=== PATIENT | female | born 2000 | race Caucasian/White ===

== ENCOUNTER 2018-11-11 21:41 | Emergency (ER) | payer BC ==
[~2018-11-11] VITALS: Ht 170.2 cm; Wt 122.8 kg
[2018-11-11] MEDS ORDERED: PHENYLEPHRINE NASAL 1%, 15ML SPRAY ONE ×2 (22:17→22:22)
--- NOTE | 2018-11-11 22:26 | NUR ---
INITIAL CONTACT WITH PT. PT HAS BEEN SEEN BY AND NEOSYNEPHRIN ADMINISTERED. PT RESTING QUIETLY, NAD.
[2018-11-11] MEDS ORDERED: NAPR-856 PO (22:28)
[2018-11-11] MEDS ORDERED: PHENYLEPHRINE NASAL 1%, 30ML DROPS NAS ONE (22:30)
--- NOTE | 2018-11-11 23:32 | NUR ---
PT DC'D HOME WITH UNDERSTANDING OF INSTRUCTIONS. PT AND FRIEND ESCORTED TO DC DESK, PT GAIT STEADY.
[2018-11-11 23:33] VITALS: BP 132/87
== END 2018-11-11 23:35 | disposition home or self-care (01) ==
LOC: ED 22:07
DX: R04.0 Epistaxis (principal)
CPT/HCPCS: 30901; 99284